=== PATIENT | female | born 1930 | race Caucasian/White ===

== ENCOUNTER 2017-07-09 17:43 | Observation (INO) ==
--- NOTE | 2017-07-09 18:06 | Emergency Department Note ---
Disposition Clinical Impression: Dehydration, CINDY (acute kidney injury) Disposition: Admitted As Inpatient Condition: Fair Referrals: Cristy Gonzalez CNP [Primary Care Provider] - Time of Disposition: 19:49 ([facility]) Weakness HPI - General Stated complaint: confusion, weak Time Seen by Provider: 07/09/17 18:00 Source: patient, family Limitations: no limitations Nursing Notes Reviewed: Yes Vital Signs Reviewed: Yes - History of Present Illness HPI Narrative: Elderly female recently hospitalized for gallop presents to the emergency room complaining of confusion and weakness does not have any energy she denies chest pain chest pressure denies any focal weakness states it is more global she denies any blurred vision double vision neck pain neck stiffness any rashes or lesion she denies cough hemoptysis or sputum production - Related Data Home Medications Medication Instructions Recorded Confirmed Aspirin [Lo-Dose Aspirin EC] 81 mg PO DAILY 09/24/16 07/09/17 Atenolol [Tenormin] 50 mg PO DAILY 09/24/16 07/09/17 Citalopram [CeleXA] 20 mg PO DAILY 09/24/16 07/09/17 Clopidogrel Bisulfate [Plavix] 75 mg PO DAILY 09/24/16 07/09/17 Furosemide [Lasix] 40 mg PO DAILY 09/24/16 07/09/17 Gabapentin [Neurontin] 600 mg PO HS 09/24/16 07/09/17 Levothyroxine [Synthroid] 75 mcg PO 0630 09/24/16 07/09/17 Simvastatin [Zocor] 40 mg PO HS 09/24/16 07/09/17 Lisinopril [Zestril] 10 mg PO DAILY 07/09/17 07/09/17 Allergies Allergy/AdvReac Type Severity Reaction Status Date / Time valsartan [From Diovan] Allergy See Verified 07/09/17 18:17 Comments All systems ED: reviewed and negative except as stated. Review of Systems: As Per HPI Constitutional: Reports: weakness. Denies: chills Eyes: Denies: eye discharge ENT ED: Denies: ear pain, throat pain Cardiovascular: Denies: chest pain, palpitations Respiratory: Denies: cough, dyspnea, wheezes Gastrointestinal: Denies: abdominal pain, nausea, vomiting Genitourinary: Denies: urgency Musculoskeletal: Denies: back pain, neck pain Integumentary: Denies: rash, abrasion Neurological: Reports: weakness, confusion. Denies: headache Psychiatric: Denies: anxiety Endocrine: Denies: fatigue Hematological/Lymphatic: Denies: easy bleeding Allergic/Immunologic: Denies: facial swelling Past Medical History - Past Medical History Attestation: Yes The following information was validated with the patient. Source: patient, old records reviewed, obtained from family, nursing notes reviewed Medical history: Reports: coronary artery disease, hyperlipidemia, hypertension , myocardial infarction, thyroid disease Surgical history: Reports: orthopedic, other Psychiatric history: Reports: no psych history [employer] history: Reports: no [employer] history - Social History Smoking Status: Never smoker Smokeless Tobacco Status: No Alcohol use: Reports: none Drug use: Reports: none Physical Exam - General Limitations: no limitations General appearance: alert, in no apparent distress - Head Head exam: atraumatic, normocephalic, normal inspection - Eye Eye exam: Present: normal appearance, PERRL, EOMI - ENT ENT exam: normal exam, normal oropharynx, mucous membranes moist - Neck Neck exam: Present: normal inspection, full ROM, trachea midline - Chest Chest inspection: Present: normal inspection, symmetric chest wall rise - Respiratory Respiratory exam: Present: normal lung sounds bilaterally - Cardiovascular Cardiovascular exam: Present: regular rate, normal rhythm, normal heart sounds - Abdominal Exam Abdominal exam: Present: soft, Non-Tender, normal bowel sounds. Absent: tenderness, distention, guarding, rebound, rigidity, mass, pulsatile mass - Extremities Exam Extremities exam: Present: normal inspection, full ROM, normal capillary refill. Absent: tenderness, pedal edema, joint swelling, calf tenderness - Expanded Upper Extremity Exam Hand L/R back image: 1 - Red-hot swollen joint and proximal interphalangeal segment recently had gout - Expanded Lower Extremity Exam Neurovascular/Tendon exam: Present: normal capillary refill, normal fine/light touch - Back Exam Back exam: Present: normal inspection, full ROM. Absent: tenderness, muscle spasm - Neurological Exam Neurological exam: Present: alert, oriented X3, CN II-XII intact, normal gait - Psychiatric Psychiatric exam: Present: normal affect, normal mood - Skin Skin exam: Present: warm, dry, intact, normal color Course Course Narrative: Pleasant elderly female EKG chest x-ray CT head labs were ordered including blood cultures to try to determine the etiology of the weakness patient is reportedly had some confusion but she appears to be appropriate at this time only in room at bedside - Reevaluation(s) Reevaluation #1: She had a Mena catheter placed to monitor urine output because of the decreased renal function and minimal urine output noted during her period of time here in the emergency room I spoke with Dr. Shetty he has agreed to accept the patient his services will monitor her eyes and nose and will also repeat BUN /creatinine morning family is agreeable with the plan and they are aware that if the patient does not show any improvement she will have to be transferred Vital Signs Temperature 97.5 F L 07/09/17 17:45 Pulse Rate 67 07/09/17 17:45 Respiratory Rate 16 07/09/17 17:45 Blood Pressure 99/66 07/09/17 17:45 O2 Sat by Pulse Oximetry 96 07/09/17 17:45 Temperature 97.5 F L 07/09/17 17:45 Pulse Rate 68 07/09/17 18:54 Respiratory Rate 16 07/09/17 18:54 Blood Pressure 90/42 07/09/17 18:54 O2 Sat by Pulse Oximetry 99 07/09/17 18:54 Oxygen Delivery Oxygen Delivery Room Air Weakness - Differential Diagnosis Differential Diagnosis: Likely: sepsis/infection, dehydration, metabolic - Medical Records Medical records reviewed: Yes I reviewed the patient's medical records. - Lab Data Lab results reviewed: Yes I reviewed the patient's lab results. Result diagrams: 07/09/17 18:10 07/09/17 18:10 Lab Results 07/09/17 07/09/17 07/09/17 Range/Units 18:10 18:10 18:10 WBC 7.5 (4.3-11.1) K/mcL RBC 3.63 L (3.82-4.97) M/mcL Hgb 11.4 L (11.5-15.4) g/dL Hct 33.0 L (35.3-44.9) % MCV 90.9 (83.0-100.0) fL MCH 31.4 (28.0-33.3) pg MCHC 34.5 (31.6-35.5) g/dL RDW 13.4 (11.5-14.5) % Plt Count 239 (140-400) K/mcL MPV 10.7 (9.4-12.4) fL Immature Gran % 0.7 (0-4) % Seg Neutrophils % 63.8 % Lymphocytes % 27.3 % Monocytes % 5.2 % Eosinophils % 2.3 % Basophils % 0.7 % Neutrophils # 4.8 (1.6-8.9) K/mcL Lymphocytes # 2.0 (0.6-4.6) K/mcL Monocytes # 0.4 (0.0-1.3) K/mcL Eosinophils # 0.2 (0.0-0.6) K/mcL Basophils # 0.1 (0.0-0.2) K/mcL PT (9.4-12.1) Seconds INR APTT 27.2 (26.0-36.0) Seconds VBG Lactic Acid (0.5-2.2) mmol/L Sodium 135 L (136-145) mEq/L Potassium 4.0 (3.5-4.5) mEq/L Chloride 104 (98-109) mEq/L Carbon Dioxide 16 L (19-29) mEq/L BUN 82 H (7-20) mg/dL Creatinine 2.63 H (0.57-1.11) mg/dL Est GFR ( Amer) 21 L (> 60) Est GFR (Non-Af Amer) 17 L (> 60) BUN/Creatinine Ratio 31 H (6-26) Glucose 110 H (70-99) mg/dL Calculated Osmolality 305 H (280-300) Calcium 9.9 (8.6-10.8) mg/dL Total Bilirubin 0.4 (0.2-1.2) mg/dL AST 21 (5-34) Units/L ALT 24 (0-55) Units/L Alkaline Phosphatase 94 (38-126) Units/L Troponin I (0-0.03) ng/mL B-Natriuretic Peptide (0-100) pg/mL Serum Total Protein 6.4 (6.0-8.3) g/dL Albumin 3.3 L (3.5-5.0) g/dL Globulin 3.1 (2.4-3.5) g/dL Albumin/Globulin Ratio 1.1 (1.1-2.2) 07/09/17 07/09/17 07/09/17 Range/Units 18:10 18:10 18:10 WBC (4.3-11.1) K/mcL RBC (3.82-4.97) M/mcL Hgb (11.5-15.4) g/dL Hct (35.3-44.9) % MCV (83.0-100.0) fL MCH (28.0-33.3) pg MCHC (31.6-35.5) g/dL RDW (11.5-14.5) % Plt Count (140-400) K/mcL MPV (9.4-12.4) fL Immature Gran % (0-4) % Seg Neutrophils % % Lymphocytes % % Monocytes % % Eosinophils % % Basophils % % Neutrophils # (1.6-8.9) K/mcL Lymphocytes # (0.6-4.6) K/mcL Monocytes # (0.0-1.3) K/mcL Eosinophils # (0.0-0.6) K/mcL Basophils # (0.0-0.2) K/mcL PT 10.4 (9.4-12.1) Seconds INR 1.0 APTT (26.0-36.0) Seconds VBG Lactic Acid (0.5-2.2) mmol/L Sodium (136-145) mEq/L Potassium (3.5-4.5) mEq/L Chloride (98-109) mEq/L Carbon Dioxide (19-29) mEq/L BUN (7-20) mg/dL Creatinine (0.57-1.11) mg/dL Est GFR ( Amer) (> 60) Est GFR (Non-Af Amer) (> 60) BUN/Creatinine Ratio (6-26) Glucose (70-99) mg/dL Calculated Osmolality (280-300) Calcium (8.6-10.8) mg/dL Total Bilirubin (0.2-1.2) mg/dL AST (5-34) Units/L ALT (0-55) Units/L Alkaline Phosphatase (38-126) Units/L Troponin I 0.01 (0-0.03) ng/mL B-Natriuretic Peptide 154 H (0-100) pg/mL Serum Total Protein (6.0-8.3) g/dL Albumin (3.5-5.0) g/dL Globulin (2.4-3.5) g/dL Albumin/Globulin Ratio (1.1-2.2) 07/09/17 Range/Units 18:10 WBC (4.3-11.1) K/mcL RBC (3.82-4.97) M/mcL Hgb (11.5-15.4) g/dL Hct (35.3-44.9) % MCV (83.0-100.0) fL MCH (28.0-33.3) pg MCHC (31.6-35.5) g/dL RDW (11.5-14.5) % Plt Count (140-400) K/mcL MPV (9.4-12.4) fL Immature Gran % (0-4) % Seg Neutrophils % % Lymphocytes % % Monocytes % % Eosinophils % % Basophils % % Neutrophils # (1.6-8.9) K/mcL Lymphocytes # (0.6-4.6) K/mcL Monocytes # (0.0-1.3) K/mcL Eosinophils # (0.0-0.6) K/mcL Basophils # (0.0-0.2) K/mcL PT (9.4-12.1) Seconds INR APTT (26.0-36.0) Seconds VBG Lactic Acid 1.9 (0.5-2.2) mmol/L Sodium (136-145) mEq/L Potassium (3.5-4.5) mEq/L Chloride (98-109) mEq/L Carbon Dioxide (19-29) mEq/L BUN (7-20) mg/dL Creatinine (0.57-1.11) mg/dL Est GFR ( Amer) (> 60) Est GFR (Non-Af Amer) (> 60) BUN/Creatinine Ratio (6-26) Glucose (70-99) mg/dL Calculated Osmolality (280-300) Calcium (8.6-10.8) mg/dL Total Bilirubin (0.2-1.2) mg/dL AST (5-34) Units/L ALT (0-55) Units/L Alkaline Phosphatase (38-126) Units/L Troponin I (0-0.03) ng/mL B-Natriuretic Peptide (0-100) pg/mL Serum Total Protein (6.0-8.3) g/dL Albumin (3.5-5.0) g/dL Globulin (2.4-3.5) g/dL Albumin/Globulin Ratio (1.1-2.2) - Radiology Data Radiology results reviewed: Yes I reviewed the patient's radiology results. ITS Impressions Chest X-Ray 07/09/17 17:55 IMPRESSION: No acute abnormality. D/ / Dheeraj Scherer MD / Dheeraj Scherer MD Interpreting Provider: Dheeraj Scherer MD Head CT 07/09/17 17:56 IMPRESSION: No acute intracranial abnormality. D/ / Dheeraj Scherer MD / Dheeraj Scherer MD Interpreting Provider: Dheeraj Scherer MD - EKG Data EKG attestation: Yes I reviewed and interpreted this EKG. EKG results narrative: Sinus bradycardia rate 57 MN 155 QRS 98 QT 399 axis XXXIII occasional supraventricular beat noted Critical Care Time Critical Care Time: Yes Total Critical Care Time: 20 Attestation: Critical care performed: 20 minutes as the results of the worsening renal function showing renal insufficiency acute on chronic renal disease and injury with the BUN/creatinine going up and also showing a decrease in CO2 and the patient being hypotensive here which did respond to fluid resuscitation spoke with Dr. Shetty patient admitted transferred to [facility] stable Time is exclusive of separately billable procedures. Time includes: direct patient care, patient reassessment, coordination of patient care, interpretation of data (laboratory data, radiology data, and respiratory data), review of patient's medical records, medical consultation and documentation of patient care. Procedures included in critical care time: Procedures excluded from critical care time:
[2017-07-09] MEDS ORDERED: 0.9 % Sodium Chloride 1,000 ML IVC ONE ×2 (18:15)
[2017-07-09 18:23] LABS: Basophils # 0.1 K/mcL (0.0-0.2); Basophils % 0.7 %; Eosinophils # 0.2 K/mcL (0.0-0.6); Eosinophils % 2.3 %; Hemoglobin 11.4 g/dL (11.5-15.4); Immature Granulocytes % 0.7 % (0-4); Lymphocytes % 27.3 %; Mean Corpuscular HGB Conc 34.5 g/dL (31.6-35.5); Mean Corpuscular Hemoglobin 31.4 pg (28.0-33.3); Mean Corpuscular Volume 90.9 fL (83.0-100.0); Mean Platelet Volume 10.7 fL (9.4-12.4); Monocytes # 0.4 K/mcL (0.0-1.3); Monocytes % 5.2 %; Neutrophils # 4.8 K/mcL (1.6-8.9); Platelet Count 239 K/mcL (140-400); Red Blood Count 3.63 M/mcL (3.82-4.97); Red Cell Distribution Width 13.4 % (11.5-14.5); Segmented Neutrophils % 63.8 %
[2017-07-09 18:49] LABS: Prothrombin Time 10.4 Seconds (9.4-12.1)
[2017-07-09 19:06] LABS: Albumin 3.3 g/dL (3.5-5.0); Albumin/Globulin Ratio 1.1 (1.1-2.2); Bilirubin,Total 0.4 mg/dL (0.2-1.2); Calcium 9.9 mg/dL (8.6-10.8); Globulin 3.1 g/dL (2.4-3.5); Total Protein 6.4 g/dL (6.0-8.3)
--- NOTE | 2017-07-09 23:53 | Internal Med History&Physical ---
Date of Encounter: 07/10/17 Time of Encounter: 23:53 Assessment and Plan (1) CINDY (acute kidney injury) Current visit: Yes Status: Acute Patient has been admitted to observation bed because of acute kidney injury with elevated creatinine of 2.6 with baseline of 1.3. She has confusion, weakness, poor urine output. She will have IV fluids and reassess in the morning. I suspect that she has had NSAID use because of her gout in the finger and possibly poor po intake accounting for this. (2) Chronic kidney disease Current visit: Yes Status: Chronic History chronic kidney disease. Baseline usually about 1.3. Qualifiers: Chronic kidney disease stage: stage 3 (moderate) Qualified Code(s): N18.3 - Chronic kidney disease, stage 3 (moderate) (3) Gout Current visit: No Status: Chronic History of gout with tophaceous changes in the left index finger PIP joint. It is quieted down. She has slightly decreased range of motion. It is not red or hot. We are avoiding NSAID use for this. She finished prednisone already. 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 I do not have a better history than that. She is not having angina. Monitor shows normal sinus rhythm. No congestive heart failure signs or symptoms Qualifiers: Coronary Disease-Associated Artery/Lesion type: [place] artery [place] vs. transplanted heart: [place] heart Associated angina: without angina Qualified Code(s): I25.10 - Atherosclerotic heart disease of [place] coronary artery without angina pectoris (5) Hypertension Current visit: No Status: Chronic History of hypertension. Her blood pressures are in the 90s systolic. We will hold her lisinopril because of low blood pressure and her acute kidney injury. We will monitor. Qualifiers: Hypertension type: essential hypertension Qualified Code(s): I10 - Essential (primary) hypertension (6) Hypothyroid Current visit: No Status: Chronic Qualifiers: Hypothyroidism type: unspecified Qualified Code(s): E03.9 - Hypothyroidism , unspecified Internal Medicine - H&P: HPI Chief complaint: I am not sure why I am here Admitted From: Emergency Dept Plans for Post Hospital Care: Home History of present illness: Ms. Perales is a 87 year old female with known history of recent hospitalization for out in her finger, hypertension, hypothyroidism, chronic kidney disease was admitted via the ER with history of generalized weakness, increased confusion, acute kidney injury, poor urine output. Patient is a poor historian and cannot tell me much more than she had diarrhea that she got better. She has been "confused" but she cannot be anymore specific than that. She does remember that she was at [place] recently because of gout in the left index finger. She does not know the year nor the season. She does know we are in [place] and she knows her birthday and that she is 87 years old. In the ER she was found to have increased creatinine of 2.6.3. Try to get a urine sample she had no urine in her bladder. She had generalized weakness. I cannot get any further history from the patient tonight that is pertinent. Past Med Surg Social Fam HX - Past Medical History Medical history: coronary artery disease, hyperlipidemia, hypertension, myocardial infarction, thyroid disease Psychiatric history: no psych history - Past Surgical History Surgical History: orthopedic, other - Social History Smoking Status: Never smoker Smokeless Tobacco Status: No Alcohol use: none Drug use: none Occupational status: other Current living situation: Home Activity Level: Uses cane/walker - Family History Mother Living Status: Hx Family Cardiac Disorders: Yes (CAD) Daughter Living Status: Still Living Hx Family Cardiac Disorders: No Hx Family Respiratory Disorders: No Hx Family Cancer: No Hx Family GI Disorders: No Internal Medicine - H&P: Meds Aspirin [Lo-Dose Aspirin EC] 81 mg PO DAILY 09/24/16 [History] Atenolol [Tenormin] 50 mg PO DAILY 09/24/16 [History] Citalopram [CeleXA] 20 mg PO DAILY 09/24/16 [History] Clopidogrel Bisulfate [Plavix] 75 mg PO DAILY 09/24/16 [History] Furosemide [Lasix] 40 mg PO DAILY 09/24/16 [History] Gabapentin [Neurontin] 600 mg PO HS 09/24/16 [History] Levothyroxine [Synthroid] 75 mcg PO 0630 09/24/16 [History] Simvastatin [Zocor] 40 mg PO HS 09/24/16 [History] Lisinopril [Zestril] 10 mg PO DAILY 07/09/17 [History] Allergies valsartan [From Diovan] Allergy (Verified 07/09/17 18:17) See Comments - Constitutional Constitutional: weakness, no anorexia, no fever(s), no falls, no night sweats, no weight gain, no weight loss - EENT Eyes: no change in vision, no discharge, no loss of vision, no pain Ears: no ear discharge, no ear pain Nose, mouth and throat: no dry mouth, no neck mass, no sore throat - Cardiovascular Cardiovascular ROS IM: no chest pain, no claudication, no dyspnea, no dyspnea on exertion, no irregular heart rhythm, no lightheadedness, no palpitations, no syncope - Respiratory Respiratory: no cough, no dyspnea, no hemoptysis, no dyspnea on exertion, no change in phlegm color - Gastrointestinal Gastrointestinal: diarrhea (She did have diarrhea but it is now getting better) , no bloating, no constipation, no heartburn, no hematemesis, no melena, no vomiting - Genitourinary Genitourinary: no flank pain, no urinary frequency, no urinary urgency, no vaginal discharge Menstruation: post menopausal - Musculoskeletal Musculoskeletal ROS IM: joint swelling (She has gout left index finger PIP joint ), no back pain - Integumentary Integumentary IM: no rash, no jaundice - Neurological Neurological ROS: as per HPI (She states she has not been herself and sometimes gets confused), no dizziness, no numbness, no vertigo - Psychiatric Psychiatric: as per HPI, no auditory hallucinations, no hallucinations, no visual hallucinations - Constitutional Vitals: Temp Pulse Resp BP Pulse Ox 98.1 F 56 18 99/48 99 07/09/17 21:28 07/09/17 21:28 07/09/17 21:28 07/09/17 21:28 07/09/17 21:28 General appearance: Present: A&O X 2, pleasant, no acute distress, obese - Head Head exam: Present: atraumatic - Eye Eye exam: Present: EOMI, PERRL. Absent: nystagmus, scleral icterus Pupils: Present: PERRL - ENT ENT exam: Present: mucous membranes moist, TM's normal bilaterally. Absent: normal oropharynx (She has a set of dentures) - Neck Neck exam general surgery: Absent: lymphadenopathy, tenderness, thyromegaly - Respiratory Respiratory exam: Present: CTAB. Absent: respiratory distress, wheezes - Cardiovascular Cardiovascular exam: Present: RRR, +S1, +S2. Absent: systolic murmur - GI/Abdominal GI/Abdominal exam: Present: soft. Absent: guarding, hepatomegaly, mass, tenderness, no peritoneal signs - Extremities Exam Extremities exam: Present: warm. Absent: calf tenderness, pedal edema, tenderness Additional comments: Tophaceous gouty-type swelling at the left index finger PIP - Neurological Exam Neurological exam: Present: alert, CN II-XII intact, strengths equal and symetr throughout. Absent: oriented X3, facial droop, speech deficit - Psychiatric Psychiatric exam: Present: normal mood Internal Med - H&P Results - Labs CBC & Chem 7: 07/10/17 04:43 07/10/17 04:43 Labs: Labs have been reviewed.
[2017-07-10] MEDS ORDERED: 0.9 % Sodium Chloride 1,000 ML IVC SCH ×3 (00:30→07:45)
[2017-07-10 03:15] LABS: Bilirubin,Urine Negative (Negative); Blood,Urine Moderate (Negative); Clarity,Urine Clear (Clear); Color,Urine Yellow (Yellow); Glucose,Urine (UA) Normal (Normal); Ketones,Urine Negative (Negative); Leukocyte Esterase,Urine Trace (Negative); Nitrite,Urine Negative (Negative); PH,Urine 5.5 pH Units (5.0-8.0); Protein,Urine Negative (Neg-Trace); Urobilinogen,Urine Normal (Normal)
[2017-07-10 05:27] LABS: Mean Corpuscular HGB Conc 34.5 g/dL (31.6-35.5); Mean Corpuscular Hemoglobin 31.4 pg (28.0-33.3); Mean Corpuscular Volume 91.2 fL (83.0-100.0); Mean Platelet Volume 10.8 fL (9.4-12.4); Platelet Count 199 K/mcL (140-400); Red Blood Count 3.18 M/mcL (3.82-4.97); Red Cell Distribution Width 13.4 % (11.5-14.5)
[2017-07-10 05:40] LABS: Calcium 9.1 mg/dL (8.6-10.8); Potassium 3.6 mEq/L (3.5-4.5)
[2017-07-10 05:42] LABS: Bacteria,Urine Few per hpf (None-Few); RBC,Urine 0-3 per hpf (0-3)
[2017-07-10] MEDS ORDERED: Naloxone 0.4 MG/ML INJ IVP PRN (07:45)
[2017-07-10] MEDS ORDERED: NON-FORMULARY MEDICATION 1 EACH EACH (Gabapentin [Neurontin] 600 MG) PO SCH (07:45)
[2017-07-10] MEDS ORDERED: Furosemide 40 MG TABLET PO SCH ×2 (09:00)
[2017-07-10] MEDS ORDERED: Aspirin Enteric Coated 81 MG Tablet PO SCH ×3 (09:00)
--- NOTE | 2017-07-10 11:07 | Discharge Summary ---
Date of Encounter: 07/10/17 Time of Encounter: 11:06 - Discharge Diagnosis (1) CINDY (acute kidney injury) Priority: Primary Status: Acute Comments: Patient is an 87-year-old woman with known history of chronic kidney disease, recent occurrence of acute gout, hypertension, CAD who was discharged last month from [facility] for acute gout attack in her finger. For the past couple of days she has had increased confusion, not getting around as well and was brought to the emergency room. Her creatinine was found to be 2.6 with a baseline of 1.3 [address] they tried to place a Mena catheter she had no urine in her bladder. With the increase in confusion, decreased ability for ADLs, acute kidney injury and no urine output she was admitted to observation bed. Overnight she had IV fluids and her creatinine this morning is 1.4 with GFR of 33. Her family is present and stated "she is back to her normal". She is able to ambulate with a walker, she is great with social conversation. She does not remember the year, but that is not unusual for her. We suspect that her acute kidney injury may have come from NSAID use that she had at home with regard to treatment for gout. Prior to discharge she was ambulated in the hallway, her family states she is at her baseline, she is eating well and not requiring IV fluids. We are verifying her medications with [facility] and she will be discharged to home to follow up with her PCP soon. (2) Chronic kidney disease Priority: Secondary Status: Chronic Comments: She is chronic kidney disease and likely from hypertension. Her creatinine is now at its baseline. She is to avoid NSAIDs. Qualifiers: Chronic kidney disease stage: stage 3 (moderate) Qualified Code(s): N18.3 - Chronic kidney disease, stage 3 (moderate) (3) Gout Priority: Secondary Status: Chronic Comments: She has gout in her left index finger PIP joint. She has slight decreased mobility. She does not have particular pain with that. She has been weaned off her prednisone since her last discharge from the hospital. She is to avoid NSAIDs. She may follow-up with orthopedics or rheumatology if appropriate per her PCP. At the present time less medication is better for her. 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 Her blood pressure before she came was 130 systolic according to the daughter. Her blood pressures while hospitalized and in the high 90s systolic. We held her lisinopril. They will follow at home and follow-up with PCP. Qualifiers: Hypertension type: essential hypertension Qualified Code(s): I10 - Essential (primary) hypertension (5) Hypothyroid Priority: Secondary Status: Chronic Comments: She is a history of hypothyroidism. Her TSH was checked recently. We will continue the same replacement. Qualifiers: Hypothyroidism type: unspecified Qualified Code(s): E03.9 - Hypothyroidism , unspecified (6) Coronary artery disease Priority: Secondary Status: Chronic Comments: She is a known history of coronary artery disease and stents in the past. Family state that she has appoint see Dr. Krishnan the horizontal drill operator for this. She has had no angina. Cardiac rhythm has been normal sinus rhythm Qualifiers: Coronary Disease-Associated Artery/Lesion type: [place] artery [place] vs. transplanted heart: [place] heart Associated angina: without angina Qualified Code(s): I25.10 - Atherosclerotic heart disease of [place] coronary artery without angina pectoris - Discharge Medications Home Medications: Aspirin [Lo-Dose Aspirin EC] 81 mg PO DAILY 09/24/16 [History] Atenolol [Tenormin] 50 mg PO DAILY 09/24/16 [History] Citalopram [CeleXA] 20 mg PO DAILY 09/24/16 [History] Clopidogrel Bisulfate [Plavix] 75 mg PO DAILY 09/24/16 [History] Furosemide [Lasix] 40 mg PO DAILY 09/24/16 [History] Gabapentin [Neurontin] 600 mg PO HS 09/24/16 [History] Levothyroxine [Synthroid] 75 mcg PO 0630 09/24/16 [History] Simvastatin [Zocor] 40 mg PO HS 09/24/16 [History] Lisinopril [Zestril] 10 mg PO DAILY 07/09/17 [History] Allergies/Adverse Reactions: Allergies valsartan [From Diovan] Allergy (Verified 07/09/17 18:17) See Comments Procedures/tests Complete & Pending: Laboratory Tests 07/09/17 07/09/17 07/09/17 18:10 18:10 18:10 WBC 7.5 RBC 3.63 L Hgb 11.4 L Hct 33.0 L MCV 90.9 MCH 31.4 MCHC 34.5 RDW 13.4 Plt Count 239 MPV 10.7 Immature Gran % 0.7 Seg Neutrophils % 63.8 Lymphocytes % 27.3 Monocytes % 5.2 Eosinophils % 2.3 Basophils % 0.7 Neutrophils # 4.8 Lymphocytes # 2.0 Monocytes # 0.4 Eosinophils # 0.2 Basophils # 0.1 PT INR APTT 27.2 VBG Lactic Acid Sodium 135 L Potassium 4.0 Chloride 104 Carbon Dioxide 16 L BUN 82 H Creatinine 2.63 H Est GFR ( Amer) 21 L Est GFR (Non-Af Amer) 17 L BUN/Creatinine Ratio 31 H Glucose 110 H Calculated Osmolality 305 H Uric Acid Calcium 9.9 Total Bilirubin 0.4 AST 21 ALT 24 Alkaline Phosphatase 94 Troponin I B-Natriuretic Peptide Serum Total Protein 6.4 Albumin 3.3 L Globulin 3.1 Albumin/Globulin Ratio 1.1 Urine Color Urine Clarity Urine pH Ur Specific [place] Urine Protein Urine Glucose (UA) Urine Ketones Urine Blood Urine Nitrite Urine Bilirubin Urine Urobilinogen Ur Leukocyte Esterase Urine Microscopic RBC Urine Microscopic WBC Urine Bacteria Ur Culture Indicated? 07/09/17 07/09/17 07/09/17 18:10 18:10 18:10 WBC RBC Hgb Hct MCV MCH MCHC RDW Plt Count MPV Immature Gran % Seg Neutrophils % Lymphocytes % Monocytes % Eosinophils % Basophils % Neutrophils # Lymphocytes # Monocytes # Eosinophils # Basophils # PT 10.4 INR 1.0 APTT VBG Lactic Acid Sodium Potassium Chloride Carbon Dioxide BUN Creatinine Est GFR ( Amer) Est GFR (Non-Af Amer) BUN/Creatinine Ratio Glucose Calculated Osmolality Uric Acid Calcium Total Bilirubin AST ALT Alkaline Phosphatase Troponin I 0.01 B-Natriuretic Peptide 154 H Serum Total Protein Albumin Globulin Albumin/Globulin Ratio Urine Color Urine Clarity Urine pH Ur Specific [place] Urine Protein Urine Glucose (UA) Urine Ketones Urine Blood Urine Nitrite Urine Bilirubin Urine Urobilinogen Ur Leukocyte Esterase Urine Microscopic RBC Urine Microscopic WBC Urine Bacteria Ur Culture Indicated? 07/09/17 07/09/17 07/10/17 18:10 19:41 03:50 WBC RBC Hgb Hct MCV MCH MCHC RDW Plt Count MPV Immature Gran % Seg Neutrophils % Lymphocytes % Monocytes % Eosinophils % Basophils % Neutrophils # Lymphocytes # Monocytes # Eosinophils # Basophils # PT INR APTT VBG Lactic Acid 1.9 Sodium Potassium Chloride Carbon Dioxide BUN Creatinine Est GFR ( Amer) Est GFR (Non-Af Amer) BUN/Creatinine Ratio Glucose Calculated Osmolality Uric Acid 13.1 H Calcium Total Bilirubin AST ALT Alkaline Phosphatase Troponin I B-Natriuretic Peptide Serum Total Protein Albumin Globulin Albumin/Globulin Ratio Urine Color Yellow Urine Clarity Clear Urine pH 5.5 Ur Specific [place] 1.010 Urine Protein Negative Urine Glucose (UA) Normal Urine Ketones Negative Urine Blood Moderate H Urine Nitrite Negative Urine Bilirubin Negative Urine Urobilinogen Normal Ur Leukocyte Esterase Trace H Urine Microscopic RBC 0-3 Urine Microscopic WBC 3-5 H Urine Bacteria Few Ur Culture Indicated? YES A 07/10/17 07/10/17 04:43 04:43 WBC 6.2 RBC 3.18 L Hgb 10.0 L Hct 29.0 L MCV 91.2 MCH 31.4 MCHC 34.5 RDW 13.4 Plt Count 199 MPV 10.8 Immature Gran % Seg Neutrophils % Lymphocytes % Monocytes % Eosinophils % Basophils % Neutrophils # Lymphocytes # Monocytes # Eosinophils # Basophils # PT INR APTT VBG Lactic Acid Sodium 140 Potassium 3.6 Chloride 113 H Carbon Dioxide 16 L BUN 64 H Creatinine 1.49 H Est GFR ( Amer) 40 L Est GFR (Non-Af Amer) 33 L BUN/Creatinine Ratio 43 H Glucose 90 Calculated Osmolality 308 H Uric Acid Calcium 9.1 Total Bilirubin AST ALT Alkaline Phosphatase Troponin I B-Natriuretic Peptide Serum Total Protein Albumin Globulin Albumin/Globulin Ratio Urine Color Urine Clarity Urine pH Ur Specific [place] Urine Protein Urine Glucose (UA) Urine Ketones Urine Blood Urine Nitrite Urine Bilirubin Urine Urobilinogen Ur Leukocyte Esterase Urine Microscopic RBC Urine Microscopic WBC Urine Bacteria Ur Culture Indicated? Date of admission: 07/09/17 20:12 Primary care physician: Cristy Gonzalez CNP Discharging clinician: Riley Shetty Anticipated date of discharge: 07/10/17 - Patient Status Disposition: Home, Self-Care Condition: Good Functional capacity at discharge: uses cane/walker Overall status at discharge: patient is back to baseline - Discharge Instructions Follow Up With: Cristy Gonzalez CNP [Primary Care Provider] - Forms: ED Satisfaction Letter - Diet and Activity Activity: ambulate only with your walker Diet: low salt diet Hospital course: Ms. Perales is a 87 year old female with known history of chronic kidney disease , hypertension, gout, CAD was admitted overnight in observation bed with confusion, decreased ADLs and was found to have acute kidney injury with creatinine increased from 1.3 baseline dose to 2.6 and very low urine output. Overnight with IV hydration her creatinine dropped back to 1.4 range, good urine output, she is eating and drinking, she is ambulating in the hallway, and her family who are present state that she is back to her baseline. Please see the discharge diagnoses as above. She will be discharged to home today - Time Spent with Patient Total time spent providing and/or coordinating discharge services: - Constitutional Vitals: Temp Pulse Resp BP Pulse Ox 98.1 F 61 16 98/46 97 07/10/17 07:23 07/10/17 07:23 07/10/17 07:23 07/10/17 07:23 07/10/17 07:23 General appearance: Present: A&O X 2, pleasant, no acute distress, obese - Respiratory Respiratory exam: Present: CTAB - Cardiovascular Cardiovascular exam: Present: RRR, +S1, +S2. Absent: systolic murmur - GI/Abdominal GI/Abdominal exam: Present: soft. Absent: tenderness - Extremities Exam Extremities exam: Absent: calf tenderness, tenderness - Neurological Exam Neurological exam: Present: abnormal gait (She requires a walker for stability. Able to ambulate 100 feet or so without difficulty), alert, CN II-XII intact, strengths equal and symetr throughout. Absent: facial droop, speech deficit
[2017-07-10 11:54] VITALS: BP 85/44
--- NOTE | 2017-07-10 15:32 | Electrocardiograph Report ---
[place] [id number] Test Date: 2017-07-09 Pat Name: Harini Perales Department: 2000 Room: 111 Gender: F Claims Correspondence Clerk: : [id number] Requested By: Moraima Duran Order Number: [id number] Reading MD: Anish Oviedo Measurements Intervals [place] Rate: 57 P: 15 WI: 155 QRS: 33 QRSD: 98 T: 39 QT: 399 QTc: 394 Interpretive Statements SINUS BRADYCARDIA WITH OCCASIONAL SUPRAVENTRICULAR PREMATURE COMPLEXES Electronically Signed On 07-10-2017 15:30:21 EDT by Anish Oviedo
[2017-07-10] MEDS ORDERED: Gabapentin 300 MG CAPSULE PO SCH ×2 (21:00)
[2017-07-11] MEDS ORDERED: *HR* Enoxaparin 30 MG/0.3 ML SYRINGE SQ SCH ×2 (06:00)
== END 2017-07-10 13:00 | disposition home or self-care (01) ==
LOC: EMEROOGRE 17:43 → INPGRE 17:43
PROVIDERS: ADMIT Family Medicine; ATTEND Family Medicine

== ENCOUNTER 2017-08-26 15:51 | Inpatient (IN) ==
--- NOTE | 2017-08-26 16:15 | Emergency Department Note ---
Disposition Clinical Impression: Cellulitis of left leg Disposition: Admitted As Inpatient Extremity Problem HPI - General Chief complaint: ED Extremity Injury, Lower Stated complaint: leg pain Time Seen by Provider: 08/26/17 16:02 Source: patient, EMS Mode of arrival: EMS Limitations: no limitations Nursing Notes Reviewed: Yes Vital Signs Reviewed: Yes - History of Present Illness HPI Narrative: 79-year-old female presents to ER with complaints of leg pain. Patient gives a limited history. Family reports patient has been bedbound for days to weeks at this point. Today patient has been very weak and unable to stand on her legs. Son has noticed increased swelling and bilateral ankles but left greater than right. Patient did have an episode where she fell no obvious injury but some noticed increased swelling since that time. Denies any fevers or chills. Patient has recently had an arterial scan of her legs to evaluate for peripheral vascular disease. Pt Subjective Complaint: extremity pain, extremity swelling Onset (ago): day(s) (1) Consistency: constant Injury Location: left, lower extremity Pain Scale: 7 Quality: aching Radiation: proximal Improves with: immobilization, elevation Worsens with: weight bearing Associated symptoms: Reports: denies other symptoms Context: history of peripheral vascular disease - Related Data Home Medications Medication Instructions Recorded Confirmed Aspirin [Lo-Dose Aspirin EC] 81 mg PO DAILY 09/24/16 08/26/17 Atenolol [Tenormin] 50 mg PO DAILY 09/24/16 08/26/17 Citalopram [CeleXA] 20 mg PO DAILY 09/24/16 08/26/17 Clopidogrel Bisulfate [Plavix] 75 mg PO DAILY 09/24/16 08/26/17 Furosemide [Lasix] 40 mg PO DAILY 09/24/16 08/26/17 Gabapentin [Neurontin] 600 mg PO HS 09/24/16 08/26/17 Levothyroxine [Synthroid] 75 mcg PO 0630 09/24/16 08/26/17 Simvastatin [Zocor] 40 mg PO HS 09/24/16 08/26/17 Lisinopril [Zestril] 10 mg PO DAILY 07/09/17 08/26/17 HYDROcodone/Acet 5/325 mg [[place] 1 tab PO Q6H PRN 07/31/17 08/26/17 5-325 mg] Allergies Allergy/AdvReac Type Severity Reaction Status Date / Time No Known Allergies Allergy Verified 07/31/17 13:07 All systems ED: reviewed and negative except as stated. Constitutional: Denies: fever, chills Cardiovascular: Denies: chest pain Respiratory: Denies: cough Gastrointestinal: Denies: nausea, vomiting Musculoskeletal: Reports: myalgia Neurological: Reports: weakness, abnormal gait. Denies: numbness, paresthesias Past Medical History - Past Medical History Attestation: Yes The following information was validated with the patient. Source: patient, obtained from family, nursing notes reviewed Medical history: Reports: coronary artery disease, hyperlipidemia, hypertension , myocardial infarction, peripheral artery disease, thyroid disease Surgical history: Reports: orthopedic, other Psychiatric history: Reports: no psych history COMMUNITY LIAISON history: Reports: no COMMUNITY LIAISON history - Social History Smoking Status: Never smoker Smokeless Tobacco Status: No Alcohol use: Reports: none Drug use: Reports: none Physical Exam - General Limitations: no limitations General appearance: alert, in no apparent distress - Head Head exam: atraumatic, normocephalic - Eye Eye exam: Present: PERRL, EOMI. Absent: conjunctival injection - ENT ENT exam: normal oropharynx, TM's normal bilaterally - Neck Neck exam: Present: normal inspection, full ROM. Absent: lymphadenopathy - Chest Chest inspection: Present: normal inspection, symmetric chest wall rise - Respiratory Respiratory exam: Present: normal lung sounds bilaterally. Absent: respiratory distress - Cardiovascular Cardiovascular exam: Present: regular rate, normal rhythm, normal heart sounds - Abdominal Exam Abdominal exam: Present: soft, Non-Tender, normal bowel sounds. Absent: organomegaly - Extremities Exam Extremities exam: Present: pedal edema, joint swelling. Absent: calf tenderness - Expanded Lower Extremity Exam Ankle exam: Present: tenderness, swelling, erythema (Left ankle and dorsal surface of fluid.). Absent: full ROM Foot/toe exam: Present: tenderness, swelling, erythema (Left foot with warmth) Neurovascular/Tendon exam: Present: normal capillary refill. Absent: pulse deficit, motor deficit, sensory deficit - Skin Skin exam: Present: warm - Expanded Skin Exam Distribution: LLE Description: Present: tenderness, erythematous, swelling Course Course Narrative: Will admit patient for IV antibiotics and PT consult. I have ordered a DVT scan for the morning. Patient will be covered with DVT prophylaxis Lovenox. Vital Signs Temperature 97.4 F L 08/26/17 15:56 Pulse Rate 88 08/26/17 15:56 Respiratory Rate 16 08/26/17 15:56 Blood Pressure 128/68 08/26/17 15:56 O2 Sat by Pulse Oximetry 97 08/26/17 15:56 Temperature 98.7 F 08/27/17 07:05 Pulse Rate 88 08/27/17 07:05 Respiratory Rate 16 08/27/17 07:05 Blood Pressure 114/56 08/27/17 07:05 O2 Sat by Pulse Oximetry 97 08/27/17 07:05 Oxygen Delivery Oxygen Delivery Room Air Extremity Problem, Nontraumati - Differential Diagnosis Likely: cellulitis, deep venous thrombosis - Medical Records Medical records reviewed: Yes I reviewed the patient's medical records. Patient's weeks recent arterial blood scam of legs was negative for acute abdomen Alidase mild disease noted bilaterally. - Lab Data Lab results reviewed: Yes I reviewed the patient's lab results. Lab results narrative: Patient with leukocytosis at 14,000 Patient was stable anemia. Rest of patient' s labs within normal limits. Results discussed with family. Result diagrams: 08/27/17 05:15 08/27/17 05:15 Lab Results 08/26/17 08/26/17 08/26/17 Range/Units 16:24 16:24 16:24 WBC 15.2 H (4.3-11.1) K/mcL RBC 3.13 L (3.82-4.97) M/mcL Hgb 9.5 L (11.5-15.4) g/dL Hct 28.7 L (35.3-44.9) % MCV 91.7 (83.0-100.0) fL MCH 30.4 (28.0-33.3) pg MCHC 33.1 (31.6-35.5) g/dL RDW 13.7 (11.5-14.5) % Plt Count 464 H (140-400) K/mcL MPV 9.9 (9.4-12.4) fL Immature Gran % 0.7 (0-4) % Seg Neutrophils % 76.7 % Lymphocytes % 11.6 % Monocytes % 10.3 % Eosinophils % 0.4 % Basophils % 0.3 % Neutrophils # 11.7 H (1.6-8.9) K/mcL Lymphocytes # 1.8 (0.6-4.6) K/mcL Monocytes # 1.6 H (0.0-1.3) K/mcL Eosinophils # 0.1 (0.0-0.6) K/mcL Basophils # 0.1 (0.0-0.2) K/mcL PT 14.2 H (9.4-12.1) Seconds INR 1.3 APTT 27.4 (26.0-36.0) Seconds Sodium 138 (136-145) mEq/L Potassium 3.0 L (3.5-4.5) mEq/L Chloride 102 (98-109) mEq/L Carbon Dioxide 26 (19-29) mEq/L BUN 19 (7-20) mg/dL Creatinine 0.84 (0.57-1.11) mg/dL Est GFR ( Amer) > 60 (> 60) Est GFR (Non-Af Amer) > 60 (> 60) BUN/Creatinine Ratio 23 (6-26) Glucose 100 H (70-99) mg/dL Calculated Osmolality 288 (280-300) Calcium 9.8 (8.6-10.8) mg/dL Total Bilirubin 0.5 (0.2-1.2) mg/dL AST 20 (5-34) Units/L ALT 16 (0-55) Units/L Alkaline Phosphatase 158 H (38-126) Units/L Serum Total Protein 6.2 (6.0-8.3) g/dL Albumin 2.4 L (3.5-5.0) g/dL Globulin 3.8 H (2.4-3.5) g/dL Albumin/Globulin Ratio 0.6 L (1.1-2.2) Urine Color (Yellow) Urine Clarity (Clear) Urine pH (5.0-8.0) pH Units Ur Specific [place] (1.010-1.025) Urine Protein (Neg-Trace) mg/dL Urine Glucose (UA) (Normal) mg/dL Urine Ketones (Negative) mg/dL Urine Blood (Negative) Urine Nitrite (Negative) Urine Bilirubin (Negative) Urine Urobilinogen (Normal) mg/dL Ur Leukocyte Esterase (Negative) Urine Microscopic RBC (0-3) per hpf Urine Microscopic WBC (0-3) per hpf Ur Squamous Epith Cells (None-Few) per lpf Amorphous Sediment (Few) Urine Bacteria (None-Few) per hpf Hyaline Casts (None-Few) per lpf Ur Culture Indicated? (NO) 08/26/17 Range/Units 16:29 WBC (4.3-11.1) K/mcL RBC (3.82-4.97) M/mcL Hgb (11.5-15.4) g/dL Hct (35.3-44.9) % MCV (83.0-100.0) fL MCH (28.0-33.3) pg MCHC (31.6-35.5) g/dL RDW (11.5-14.5) % Plt Count (140-400) K/mcL MPV (9.4-12.4) fL Immature Gran % (0-4) % Seg Neutrophils % % Lymphocytes % % Monocytes % % Eosinophils % % Basophils % % Neutrophils # (1.6-8.9) K/mcL Lymphocytes # (0.6-4.6) K/mcL Monocytes # (0.0-1.3) K/mcL Eosinophils # (0.0-0.6) K/mcL Basophils # (0.0-0.2) K/mcL PT (9.4-12.1) Seconds INR APTT (26.0-36.0) Seconds Sodium (136-145) mEq/L Potassium (3.5-4.5) mEq/L Chloride (98-109) mEq/L Carbon Dioxide (19-29) mEq/L BUN (7-20) mg/dL Creatinine (0.57-1.11) mg/dL Est GFR ( Amer) (> 60) Est GFR (Non-Af Amer) (> 60) BUN/Creatinine Ratio (6-26) Glucose (70-99) mg/dL Calculated Osmolality (280-300) Calcium (8.6-10.8) mg/dL Total Bilirubin (0.2-1.2) mg/dL AST (5-34) Units/L ALT (0-55) Units/L Alkaline Phosphatase (38-126) Units/L Serum Total Protein (6.0-8.3) g/dL Albumin (3.5-5.0) g/dL Globulin (2.4-3.5) g/dL Albumin/Globulin Ratio (1.1-2.2) Urine Color Yellow (Yellow) Urine Clarity Clear (Clear) Urine pH 5.5 (5.0-8.0) pH Units Ur Specific [place] 1.010 (1.010-1.025) Urine Protein 30 H (Neg-Trace) mg/dL Urine Glucose (UA) Normal (Normal) mg/dL Urine Ketones Negative (Negative) mg/dL Urine Blood Trace-intact H (Negative) Urine Nitrite Positive A (Negative) Urine Bilirubin Negative (Negative) Urine Urobilinogen Normal (Normal) mg/dL Ur Leukocyte Esterase Small H (Negative) Urine Microscopic RBC 0-3 (0-3) per hpf Urine Microscopic WBC 0-3 (0-3) per hpf Ur Squamous Epith Cells Few (None-Few) per lpf Amorphous Sediment Few (Few) Urine Bacteria Many H (None-Few) per hpf Hyaline Casts Few (None-Few) per lpf Ur Culture Indicated? YES A (NO) - Radiology Data Radiology results reviewed: Yes I reviewed the patient's radiology results. Patient had an x-ray of the left lower extremity which was positive for soft tissue swelling negative for bony abnormalities. Results discussed with patient and family.
[2017-08-26 16:36] LABS: Basophils % 0.3 %; Eosinophils # 0.1 K/mcL (0.0-0.6); Eosinophils % 0.4 %; Hematocrit 28.7 % (35.3-44.9); Hemoglobin 9.5 g/dL (11.5-15.4); Immature Granulocytes % 0.7 % (0-4); Lymphocytes # 1.8 K/mcL (0.6-4.6); Lymphocytes % 11.6 %; Mean Corpuscular HGB Conc 33.1 g/dL (31.6-35.5); Mean Corpuscular Hemoglobin 30.4 pg (28.0-33.3); Mean Corpuscular Volume 91.7 fL (83.0-100.0); Mean Platelet Volume 9.9 fL (9.4-12.4); Monocytes # 1.6 K/mcL (0.0-1.3); Monocytes % 10.3 %; Neutrophils # 11.7 K/mcL (1.6-8.9); Platelet Count 464 K/mcL (140-400); Red Blood Count 3.13 M/mcL (3.82-4.97); Red Cell Distribution Width 13.7 % (11.5-14.5); Segmented Neutrophils % 76.7 %
[2017-08-26 16:37] LABS: Bilirubin,Urine Negative (Negative); Blood,Urine Trace-intact (Negative); Clarity,Urine Clear (Clear); Color,Urine Yellow (Yellow); Glucose,Urine (UA) Normal (Normal); Ketones,Urine Negative (Negative); Leukocyte Esterase,Urine Small (Negative); Nitrite,Urine Positive (Negative); PH,Urine 5.5 pH Units (5.0-8.0); Protein,Urine 30 mg/dL (Neg-Trace); Urobilinogen,Urine Normal (Normal)
[2017-08-26 16:40] LABS: Basophils # 0.1 K/mcL (0.0-0.2); INR 1.3; Prothrombin Time 14.2 Seconds (9.4-12.1)
[2017-08-26 16:43] LABS: Activated Partial Thrombo Time 27.4 Seconds (26.0-36.0)
[2017-08-26 16:44] LABS: Bacteria,Urine Many per hpf (None-Few); RBC,Urine 0-3 per hpf (0-3); Squamous Epithelial Cell,Urine Few per lpf (None-Few); WBC,Urine 0-3 per hpf (0-3)
[2017-08-26 16:45] LABS: Amorphous Sediment,Urine Few (Few); Hyaline Casts,Urine Few per lpf (None-Few)
[2017-08-26 16:51] LABS: Alanine Aminotransferase 16 Units/L (0-55); Albumin 2.4 g/dL (3.5-5.0); Albumin/Globulin Ratio 0.6 (1.1-2.2); Alkaline Phosphatase 158 Units/L (38-126); Aspartate Amino Transferase 20 Units/L (5-34); BUN/Creatinine Ratio 23 (6-26); Bilirubin,Total 0.5 mg/dL (0.2-1.2); Blood Urea Nitrogen 19 mg/dL (7-20); Calcium 9.8 mg/dL (8.6-10.8); Carbon Dioxide 26 mEq/L (19-29); Chloride 102 mEq/L (98-109); Globulin 3.8 g/dL (2.4-3.5); Glucose 100 mg/dL (70-99); Osmolality,Calculated 288 (280-300); Sodium 138 mEq/L (136-145); Total Protein 6.2 g/dL (6.0-8.3); eGFR For African Americans > 60 (> 60); eGFR For Non-African Americans > 60 (> 60)
[2017-08-26] MEDS ORDERED: Levofloxacin 750 MG/150 ML 750 MG/150 ML BAG IVPB ONE (17:15)
[2017-08-26] MEDS ORDERED: Naloxone 0.4 MG/ML INJ IVP PRN (18:58)
[2017-08-26] MEDS: *HR* HYDROcodone/Acet 5/325 mg TABLET PO PRN (20:02)
[2017-08-26] MEDS: Gabapentin 300 MG CAPSULE PO SCH (20:02)
[2017-08-27] MEDS: *HR* Enoxaparin 40 MG/0.4 ML SYRINGE SQ SCH (05:23)
[2017-08-27 05:46] LABS: Basophils % 0.3 %; Hematocrit 27.5 % (35.3-44.9); Immature Granulocytes % 0.9 % (0-4); Lymphocytes # 2.2 K/mcL (0.6-4.6); Lymphocytes % 14.9 %; Mean Corpuscular HGB Conc 32.7 g/dL (31.6-35.5); Mean Corpuscular Hemoglobin 30.2 pg (28.0-33.3); Mean Corpuscular Volume 92.3 fL (83.0-100.0); Monocytes # 1.6 K/mcL (0.0-1.3); Monocytes % 10.6 %; Neutrophils # 10.6 K/mcL (1.6-8.9); Platelet Count 440 K/mcL (140-400); Red Blood Count 2.98 M/mcL (3.82-4.97); Red Cell Distribution Width 13.6 % (11.5-14.5); Segmented Neutrophils % 72.3 %
[2017-08-27 05:47] LABS: Eosinophils # 0.2 K/mcL (0.0-0.6)
[2017-08-27 05:56] LABS: BUN/Creatinine Ratio 20 (6-26); Blood Urea Nitrogen 16 mg/dL (7-20); Calcium 9.8 mg/dL (8.6-10.8); Carbon Dioxide 24 mEq/L (19-29); Chloride 103 mEq/L (98-109); Glucose 94 mg/dL (70-99); Osmolality,Calculated 289 (280-300); Potassium 3.8 mEq/L (3.5-4.5); Sodium 139 mEq/L (136-145); eGFR For African Americans > 60 (> 60); eGFR For Non-African Americans > 60 (> 60)
[2017-08-27] MEDS ORDERED: Furosemide 40 MG TABLET PO SCH (09:00)
[2017-08-27] MEDS: Aspirin Enteric Coated 81 MG Tablet PO SCH (09:37)
[2017-08-27] MEDS: *HR* HYDROcodone/Acet 5/325 mg TABLET PO PRN (09:44)
--- NOTE | 2017-08-27 15:11 | Internal Med History&Physical ---
Date of Encounter: 08/27/17 Time of Encounter: 15:08 Assessment and Plan (1) Gout Current visit: No Status: Chronic Will check her meds for allopurinol also check her lab. 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 Perales is a 87 year old female Past Med Surg Social Fam HX - Past Medical History Medical history: coronary artery disease, hyperlipidemia, hypertension, myocardial infarction, peripheral artery disease, thyroid disease Psychiatric history: no psych history - Past Surgical History Surgical History: orthopedic, other - Social History Smoking Status: Never smoker Smokeless Tobacco Status: No Alcohol use: none Drug use: none - Family History Mother Living Status: Hx Family Cardiac Disorders: Yes (CAD) Daughter Living Status: Still Living Hx Family Cardiac Disorders: No Hx Family Respiratory Disorders: No Hx Family Cancer: No Hx Family GI Disorders: No Internal Medicine - H&P: Meds Aspirin [Lo-Dose Aspirin EC] 81 mg PO DAILY 09/24/16 [History] Atenolol [Tenormin] 50 mg PO DAILY 09/24/16 [History] Citalopram [CeleXA] 20 mg PO DAILY 09/24/16 [History] Clopidogrel Bisulfate [Plavix] 75 mg PO DAILY 09/24/16 [History] Furosemide [Lasix] 40 mg PO DAILY 09/24/16 [History] Gabapentin [Neurontin] 600 mg PO HS 09/24/16 [History] Levothyroxine [Synthroid] 75 mcg PO 0630 10/25/16 [History] Simvastatin [Zocor] 40 mg PO HS 09/24/16 [History] Lisinopril [Zestril] 10 mg PO DAILY 07/09/17 [History] HYDROcodone/Acet 5/325 mg [[place] 5-325 mg] 1 tab PO Q6H PRN 07/31/17 [History] 3 Allergy/AdvReac Type Severity Reaction Status Date / Time No Known Allergies Allergy Verified 07/31/17 13:07 All Systems PM: A 10-system review of systems was performed and is negative for pertinent findings except as documented above in the HPI. - Constitutional Vitals: Temp Pulse Resp BP Pulse Ox 100.4 F H 89 16 107/50 93 08/27/17 11:54 08/27/17 11:54 08/27/17 11:54 08/27/17 11:54 08/27/17 11:54 - Head Head exam: Present: atraumatic, normal inspection, normocephalic - Neck Neck exam general surgery: Present: supple, trachea midline. Absent: lymphadenopathy - Respiratory Respiratory exam: Present: CTAB. Absent: accessory muscle use, rales, rhonchi, wheezes - Cardiovascular Cardiovascular exam: Present: RRR, +S1, +S2. Absent: diastolic murmur, gallop, rubs, systolic murmur Internal Med - H&P Results - Labs CBC & Chem 7: 08/27/17 05:15 08/27/17 05:15 Labs: Short CBC 08/27/17 Range/Units 05:15 WBC 14.6 H (4.3-11.1) K/mcL Hgb 9.0 L (11.5-15.4) g/dL Hct 27.5 L (35.3-44.9) % Plt Count 440 H (140-400) K/mcL Neutrophils # 10.6 H (1.6-8.9) K/mcL BMP 08/27/17 05:15 Sodium 139 Potassium 3.8 Chloride 103 Carbon Dioxide 24 BUN 16 Creatinine 0.79 Glucose 94 Calcium 9.8 Well there are some changes on her lab but overall she has an increased white count could be consistent with cellulitis by her minerals and her chemistries are good
[2017-08-27] MEDS: Furosemide 40 MG/4 ML VIAL IVP SCH (15:56)
--- NOTE | 2017-08-27 19:06 | Venous Imaging Report ---
LE Venous Duplex Patient Name:Harini Perales Order Number:[id number] Procedure Date:08/27/2017 Date:1930ge:87 yrs Gender:Female Location:[facility] Room #: 114 Work Ticket Distributor:Latonia Keita RVT Referring MD:Laney Parmar DO Reading MD:Moses Valdez MD , FACS Primary Indications:left lower extremity swelling Secondary Indications: Risk Factors Yes/No Hx of DVT No Hx of Chemotherapy No Impressions: Left lower extremity: normal superficial and deep exam. Right lower extremity: normal contralateral exam. Recommendations: Critical findings reported to Nurse in person by Latonia Keita RVT. Findings Venous Duplex Results: Right: Venous imaging of the lower extremity reveals full patency and normal vessel compressibility of the right common femoral. Doppler signals in the evaluated veins were normal. Left: Venous imaging of the lower extremity reveals full patency and normal vessel compressibility of the left distal iliac, left common femoral, left superficial femoral, left popliteal, left posterior tibial, left peroneal, left great saphenous and left lesser saphenous. Doppler signals in the evaluated veins were normal. Prior Study: No prior study available for comparison. Lower Extremity Venous Duplex Side Vein Compress Spontaneous Flow Augment Diameter (cm) Depth (cm) Left Distal Iliac Normal Yes Phasic Yes Left Common Femoral Normal Yes Phasic Yes Left Superficial Femoral Normal Yes Phasic Yes Left Popliteal Normal Yes Phasic Yes Left Posterior Tibial Normal Yes Phasic Yes Left Peroneal Normal Yes Phasic Yes Left Great Saphenous Normal Yes Phasic Yes Left Lesser Saphenous Normal Yes Phasic Yes Right Common Femoral Normal Yes Phasic Yes Updated by Moses Valdez MD, FACS on 08/27/2017 7:01:37 PM Moses Valdez MD electronically signed on 08/27/2017 7:01:54 PM with status of Final
[2017-08-27] MEDS: Gabapentin 300 MG CAPSULE PO SCH (21:03)
[2017-08-28] MEDS: *HR* Enoxaparin 40 MG/0.4 ML SYRINGE SQ SCH (06:52)
[2017-08-28] MEDS: Furosemide 40 MG/4 ML VIAL IVP SCH ×2 (08:30→18:10)
[2017-08-28] MEDS: Aspirin Enteric Coated 81 MG Tablet PO SCH (08:31)
[2017-08-28] MEDS: *HR* HYDROcodone/Acet 5/325 mg TABLET PO PRN (08:36)
[2017-08-28] MEDS: levoFLOXacin 500 MG TABLET PO SCH (17:07)
[2017-08-28] MEDS: Gabapentin 300 MG CAPSULE PO SCH (20:36)
--- NOTE | 2017-08-28 20:51 | Internal Med Progress Note ---
Date of Encounter: 08/28/17 Time of Encounter: 20:49 - Assessment and plan (1) UTI (urinary tract infection) Current Visit: Yes Status: Acute Assessment and plan: rew pseduomonnas on sensitive to levofloxacin stable Qualifiers: Urinary tract infection type: acute cystitis Qualified Code(s): N30.00 - Acute cystitis without hematuria (2) Cellulitis of left leg Current Visit: Yes Status: Acute Assessment and plan: stable on meds and leg seems to be getting better very little warmth noted on left side (3) Hypertension Current Visit: No Status: Chronic Assessment and plan: stable no new change continue meds Qualifiers: Hypertension type: essential hypertension Qualified Code(s): I10 - Essential (primary) hypertension - Subjective Interval history: seen for the first time complains of some pain in her legs otherwsie no other issues - Constitutional Vitals: Temp Pulse Resp BP Pulse Ox 99.4 F 79 16 96/55 96 08/28/17 19:46 08/28/17 19:46 08/28/17 19:46 08/28/17 19:46 08/28/17 19:46 General appearance: Present: A&O X 3, pleasant, answers questions appropriately - Head Head exam: Present: atraumatic - Eye Eye exam: Present: EOMI, PERRL Pupils: Present: PERRL - Neck Neck exam general surgery: Present: supple. Absent: nuchal rigidity - Respiratory Respiratory exam: Present: CTAB. Absent: respiratory distress, rhonchi, stridor , wheezes - Cardiovascular Cardiovascular exam: Present: RRR, +S1, +S2. Absent: irregular rhythm, JVD - GI/Abdominal GI/Abdominal exam: Present: normal bowel sounds, soft. Absent: pulsatile mass, rebound, rigid - Extremities Exam Extremities exam: Present: warm Additional comments: mild wramed left side no edema noted - Neurological Exam Neurological exam: Present: CN II-XII intact, oriented X3, strengths equal and symetr throughout. Absent: facial droop, speech deficit - Other Additional findings: has cast on her right arm Internal Medicine: Result - Labs CBC & Chem 7: 08/27/17 05:15 08/27/17 05:15 - ABG Interpretation ABG results: PT/INR, D-dimer PT 14.2 Seconds (9.4-12.1) H 08/26/17 16:24 - VTE Reasons for not Prescribing Prophylaxis: Treatment not Indicated - Low risk for VTE Consult Discharge Plan - Plan Referrals: Cristy oGnzalez, ALMAZ [Primary Care Provider] -
[2017-08-29] MEDS: *HR* Enoxaparin 40 MG/0.4 ML SYRINGE SQ SCH (06:06)
[2017-08-29 06:30] LABS: Basophils % 0.3 %; Eosinophils # 0.1 K/mcL (0.0-0.6); Eosinophils % 0.8 %; Hematocrit 24.7 % (35.3-44.9); Hemoglobin 8.3 g/dL (11.5-15.4); Immature Granulocytes % 1.3 % (0-4); Lymphocytes # 2.2 K/mcL (0.6-4.6); Lymphocytes % 14.7 %; Mean Corpuscular HGB Conc 33.6 g/dL (31.6-35.5); Mean Corpuscular Hemoglobin 30.5 pg (28.0-33.3); Mean Corpuscular Volume 90.8 fL (83.0-100.0); Mean Platelet Volume 9.7 fL (9.4-12.4); Monocytes # 1.2 K/mcL (0.0-1.3); Monocytes % 8.1 %; Platelet Count 467 K/mcL (140-400); Red Blood Count 2.72 M/mcL (3.82-4.97); Red Cell Distribution Width 14.1 % (11.5-14.5); Segmented Neutrophils % 74.8 %
[2017-08-29 06:35] LABS: Neutrophils # 11.2 K/mcL (1.6-8.9)
[2017-08-29] MEDS: Aspirin Enteric Coated 81 MG Tablet PO SCH (08:37)
[2017-08-29] MEDS: Acetaminophen 325 MG TABLET PO PRN ×2 (08:43→20:23)
[2017-08-29] MEDS: *HR* HYDROcodone/Acet 5/325 mg TABLET PO PRN (17:42)
--- NOTE | 2017-08-29 17:58 | Internal Med Progress Note ---
Date of Encounter: 08/29/17 Time of Encounter: 17:53 - Assessment and plan (1) UTI (urinary tract infection) Current Visit: Yes Status: Acute Qualifiers: Urinary tract infection type: acute cystitis Qualified Code(s): N30.00 - Acute cystitis without hematuria (2) Cellulitis of left leg Current Visit: Yes Status: Acute (3) Hypertension Current Visit: No Status: Chronic Qualifiers: Hypertension type: essential hypertension Qualified Code(s): I10 - Essential (primary) hypertension - Subjective Interval history: still complains of pain all over her body especially on her feet and legs no SOB no other complains - Constitutional Vitals: Temp Pulse Resp BP Pulse Ox 99.3 F 90 18 117/64 92 08/29/17 16:50 08/29/17 16:50 08/29/17 16:50 08/29/17 16:50 08/29/17 16:50 General appearance: Present: A&O X 3, pleasant, answers questions appropriately - Head Head exam: Present: atraumatic - Eye Eye exam: Present: EOMI, PERRL - Neck Neck exam general surgery: Present: supple. Absent: tenderness, nuchal rigidity - Respiratory Respiratory exam: Present: CTAB. Absent: prolonged expiratory phase, rales, respiratory distress, rhonchi, stridor, wheezes - Cardiovascular Cardiovascular exam: Present: RRR, +S1, +S2. Absent: gallop, irregular rhythm, JVD - GI/Abdominal GI/Abdominal exam: Present: normal bowel sounds, soft. Absent: distended, guarding, rebound, rigid - Extremities Exam Extremities exam: Present: tenderness, warm. Absent: pedal edema Additional comments: left foot warm to touch redness but improving on her foot - Neurological Exam Neurological exam: Present: CN II-XII intact, oriented X3, no focal deficits. Absent: facial droop, speech deficit Internal Medicine: Result - Labs CBC & Chem 7: 08/29/17 06:12 08/27/17 05:15 Labs: Short CBC 08/29/17 Range/Units 06:12 WBC 14.9 H (4.3-11.1) K/mcL Hgb 8.3 L (11.5-15.4) g/dL Hct 24.7 L (35.3-44.9) % Plt Count 467 H (140-400) K/mcL Neutrophils # 11.2 H (1.6-8.9) K/mcL - ABG Interpretation ABG results: PT/INR, D-dimer PT 14.2 Seconds (9.4-12.1) H 08/26/17 16:24 - VTE Reasons for not Prescribing Prophylaxis: Treatment not Indicated - Low risk for VTE Consult Discharge Plan - Plan Referrals: Cristy Gonzalez, [facility] [Primary Care Provider] -
[2017-08-29] MEDS: Gabapentin 300 MG CAPSULE PO SCH (20:17)
[2017-08-30] MEDS: *HR* Enoxaparin 40 MG/0.4 ML SYRINGE SQ SCH (05:58)
[2017-08-30 08:49] LABS: Basophils # 0.1 K/mcL (0.0-0.2); Basophils % 0.4 %; Eosinophils # 0.3 K/mcL (0.0-0.6); Eosinophils % 1.8 %; Hematocrit 25.6 % (35.3-44.9); Hemoglobin 8.5 g/dL (11.5-15.4); Lymphocytes # 2.1 K/mcL (0.6-4.6); Mean Corpuscular HGB Conc 33.2 g/dL (31.6-35.5); Mean Corpuscular Hemoglobin 30.1 pg (28.0-33.3); Mean Corpuscular Volume 90.8 fL (83.0-100.0); Mean Platelet Volume 9.9 fL (9.4-12.4); Platelet Count 501 K/mcL (140-400); Red Blood Count 2.82 M/mcL (3.82-4.97); Segmented Neutrophils % 74.8 %
[2017-08-30] MEDS: Aspirin Enteric Coated 81 MG Tablet PO SCH (08:58)
[2017-08-30] MEDS: *HR* HYDROcodone/Acet 5/325 mg TABLET PO PRN ×2 (09:07→18:26)
[2017-08-30 09:18] LABS: BUN/Creatinine Ratio 23 (6-26); Blood Urea Nitrogen 24 mg/dL (7-20); Calcium 9.5 mg/dL (8.6-10.8); Carbon Dioxide 27 mEq/L (19-29); Chloride 102 mEq/L (98-109); Glucose 112 mg/dL (70-99); Osmolality,Calculated 293 (280-300); Potassium 3.3 mEq/L (3.5-4.5); Sodium 139 mEq/L (136-145); eGFR For African Americans > 60 (> 60); eGFR For Non-African Americans 51 (> 60)
[2017-08-30 09:31] LABS: Neutrophils # 10.3 K/mcL (1.6-8.9)
--- NOTE | 2017-08-30 10:31 | Internal Med Progress Note ---
Date of Encounter: 08/30/17 Time of Encounter: 10:29 - Assessment and plan (1) UTI (urinary tract infection) Current Visit: Yes Status: Acute Assessment and plan: WBC is still high on antibiotics afebrile continue present meds Qualifiers: Urinary tract infection type: acute cystitis Qualified Code(s): N30.00 - Acute cystitis without hematuria (2) Cellulitis of left leg Current Visit: Yes Status: Acute Assessment and plan: cellulites left foot which is getting better . Levofloxacin should also cover Staph and strep hold off discharge today to [facility] as her WBC are still somewhat on the higher end and are not trending down (3) Hypertension Current Visit: No Status: Chronic Assessment and plan: stable no new change Qualifiers: Hypertension type: essential hypertension Qualified Code(s): I10 - Essential (primary) hypertension - Subjective Interval history: complains of some pain in her feet otherwise no other complains no fever or chills today no SOB - Constitutional Vitals: Temp Pulse Resp BP Pulse Ox 97.7 F 69 16 101/60 99 08/30/17 07:06 08/30/17 07:06 08/30/17 07:06 08/30/17 07:06 08/30/17 07:06 General appearance: Present: A&O X 3, pleasant, answers questions appropriately - Head Head exam: Present: atraumatic - Eye Eye exam: Present: EOMI, PERRL Pupils: Present: PERRL - Neck Neck exam general surgery: Present: supple. Absent: tenderness, nuchal rigidity - Respiratory Respiratory exam: Present: CTAB. Absent: respiratory distress, rhonchi, stridor , wheezes, tachypnea - Cardiovascular Cardiovascular exam: Present: RRR, +S1, +S2. Absent: irregular rhythm, JVD, systolic murmur - GI/Abdominal GI/Abdominal exam: Present: normal bowel sounds, soft. Absent: guarding, rebound, rigid - Extremities Exam Extremities exam: Present: pedal edema, tenderness, warm Additional comments: left foot planter area red and is getting better as compared to yesterday Pitting edema B Internal Medicine: Result - Labs CBC & Chem 7: 08/30/17 08:15 08/30/17 08:15 Labs: Short CBC 08/30/17 Range/Units 08:15 WBC 13.7 H (4.3-11.1) K/mcL Hgb 8.5 L (11.5-15.4) g/dL Hct 25.6 L (35.3-44.9) % Plt Count 501 H (140-400) K/mcL Neutrophils # 10.3 H (1.6-8.9) K/mcL BMP 08/30/17 08:15 Sodium 139 Potassium 3.3 L Chloride 102 Carbon Dioxide 27 BUN 24 H Creatinine 1.03 Glucose 112 H Calcium 9.5 noted WBC still high low K - ABG Interpretation ABG results: PT/INR, D-dimer PT 14.2 Seconds (9.4-12.1) H 08/26/17 16:24 - VTE Reasons for not Prescribing Prophylaxis: Treatment not Indicated - Low risk for VTE Consult Discharge Plan - Plan Referrals: Cristy Gonzalez, [facility]MINISTR[facility] [Primary Care Provider] -
--- NOTE | 2017-08-30 10:40 | Physician Discharge Referral ---
[facility]Care Referral Info Transfer To: [facility] - Diagnosis (1) UTI (urinary tract infection) Priority: Secondary Status: Acute (2) Cellulitis of left leg Priority: Primary Status: Acute (3) Hypertension Priority: Secondary Status: Chronic Prognosis: Good Aware of Diagnosis: Patient, Family Aware of Prognosis: Patient, Family - Transfer Medications Home Medications: Aspirin [Lo-Dose Aspirin EC] 81 mg PO DAILY 09/24/16 [History] Atenolol [Tenormin] 50 mg PO DAILY 09/24/16 [History] Citalopram [CeleXA] 20 mg PO DAILY 09/24/16 [History] Clopidogrel Bisulfate [Plavix] 75 mg PO DAILY 09/24/16 [History] Furosemide [Lasix] 40 mg PO DAILY 09/24/16 [History] Gabapentin [Neurontin] 600 mg PO HS 09/24/16 [History] Levothyroxine [Synthroid] 75 mcg PO 0630 09/24/16 [History] Simvastatin [Zocor] 40 mg PO HS 09/24/16 [History] Lisinopril [Zestril] 10 mg PO DAILY 07/09/17 [History] HYDROcodone/Acet 5/325 mg [[place] 5-325 mg] 1 tab PO Q6H PRN 07/31/17 [History] Allergies/Adverse Reactions: 3 Allergy/AdvReac Type Severity Reaction Status Date / Time No Known Allergies Allergy Verified 07/31/17 13:07 - Respiratory Orders None Smoking Cessation: Smoking cessation has been advised. For more information, call the [place] Tobacco Quit Line at 5-321-TFNP-NOW. - Advance Directives Code Status: Full Code - History and Physical History/Physical reviewed & approved w/add comments: See discharge summary - Mobility Orders Chair, Other - Rehabiliation Orders Rehab Potential: Fair Rehab Orders: Evaluation for Physical Therapy, Evaluation for Occupational Therapy - Diet Orders Regular CERTIFICATION: I certify that the transfer of the above named patient to an Extended Care Facility is necessary for the continuing treatment of the diagnosis listed. The above information is true and accurate reflection of patient's current condition. Confidential - Redisclosure prohibited without a patient's written consent.
--- NOTE | 2017-08-30 10:43 | Discharge Summary ---
Date of Encounter: 08/31/17 Time of Encounter: 09:07 - Discharge Diagnosis (1) UTI (urinary tract infection) Priority: Secondary Status: Acute Comments: she grew Pseudomonas sensitive to levofloxacin. She was treated appropriately . blood cultures were negative .She is is improving and doing better Continue antibiotics for one week Qualifiers: Urinary tract infection type: acute cystitis Qualified Code(s): N30.00 - Acute cystitis without hematuria (2) Cellulitis of left leg Priority: Primary Status: Acute Comments: her blood culiutres were negative . Levofloxacin should cover all gram positive organisma as well if any , cellulites is improving . (3) Hypertension Priority: Secondary Status: Chronic Comments: stable no new change Qualifiers: Hypertension type: essential hypertension Qualified Code(s): I10 - Essential (primary) hypertension - Discharge Medications Home Medications: Aspirin [Lo-Dose Aspirin EC] 81 mg PO DAILY 09/24/16 [History] Atenolol [Tenormin] 50 mg PO DAILY 09/24/16 [History] Citalopram [CeleXA] 20 mg PO DAILY 09/24/16 [History] Clopidogrel Bisulfate [Plavix] 75 mg PO DAILY 09/24/16 [History] Furosemide [Lasix] 40 mg PO DAILY 09/24/16 [History] Gabapentin [Neurontin] 600 mg PO HS 09/24/16 [History] Levothyroxine [Synthroid] 75 mcg PO 0630 09/24/16 [History] Simvastatin [Zocor] 40 mg PO HS 09/24/16 [History] Lisinopril [Zestril] 10 mg PO DAILY 07/09/17 [History] HYDROcodone/Acet 5/325 mg [[place] 5-325 mg] 1 tab PO Q6H PRN 07/31/17 [History] Allergies/Adverse Reactions: 3 Allergy/AdvReac Type Severity Reaction Status Date / Time No Known Allergies Allergy Verified 07/31/17 13:07 Date of admission: 08/27/17 16:10 Primary care physician: Cristy Gonzalez CNP - Patient Status Disposition: Transfer SNF Condition: Good Overall status at discharge: patient is progressing back to baseline - Discharge Instructions Follow Up With: Cristy Gonzalez CNP [Primary Care Provider] - - Diet and Activity Activity: ambulate only with your walker, increase activity as tolerated Diet: advance to your usual diet Interval History: she was admitted with cellulites and was also noted to have infection in her urine . Cultures grew Gram negative Pseudomonas sensitive to levofloxacin . She was treated with IV antibiotics and had done well no other issues except for pain in her feet which was treated with medications Hospital course: Ms. Perales is a 87 year old female - Time Spent with Patient Total time spent providing and/or coordinating discharge services: - Constitutional Vitals: Temp Pulse Resp BP Pulse Ox 97.7 F 69 16 101/60 99 08/30/17 07:06 08/30/17 07:06 08/30/17 07:06 08/30/17 07:06 08/30/17 07:06 General appearance: Present: A&O X 3, pleasant, answers questions appropriately - Head Head exam: Present: atraumatic - Eye Eye exam: Present: EOMI, PERRL. Absent: scleral icterus, conjuntiva pink - Neck Neck exam general surgery: Present: supple. Absent: tenderness, nuchal rigidity - Respiratory Respiratory exam: Present: CTAB. Absent: respiratory distress, rhonchi, stridor , wheezes, tachypnea - Cardiovascular Cardiovascular exam: Present: RRR, +S1, +S2. Absent: irregular rhythm, JVD, systolic murmur, tachycardia - GI/Abdominal GI/Abdominal exam: Present: normal bowel sounds, soft. Absent: firm, guarding, rebound, rigid - Extremities Exam Extremities exam: Present: pedal edema, tenderness, warm Additional comments: left foot mild redness , redness has improved a lot , no pain - Neurological Exam Neurological exam: Present: CN II-XII intact, oriented X3, no focal deficits. Absent: facial droop, speech deficit Additional comments: non focal - VTE Reasons for not Prescribing Prophylaxis: Treatment not Indicated - Low risk for VTE
[2017-08-30] MEDS: Potassium Citrate 10 MEQ TABLET.ER PO SCH (11:59)
[2017-08-30] MEDS: levoFLOXacin 500 MG TABLET PO SCH (18:26)
[2017-08-30] MEDS: Gabapentin 300 MG CAPSULE PO SCH (22:17)
[2017-08-30] MEDS: Acetaminophen 325 MG TABLET PO PRN (22:18)
[2017-08-31 05:44] LABS: Basophils # 0.1 K/mcL (0.0-0.2); Basophils % 0.5 %; Eosinophils # 0.3 K/mcL (0.0-0.6); Eosinophils % 2.3 %; Hematocrit 26.2 % (35.3-44.9); Hemoglobin 8.5 g/dL (11.5-15.4); Immature Granulocytes % 1.4 % (0-4); Lymphocytes # 2.4 K/mcL (0.6-4.6); Lymphocytes % 17.9 %; Mean Corpuscular HGB Conc 32.4 g/dL (31.6-35.5); Mean Corpuscular Hemoglobin 29.6 pg (28.0-33.3); Mean Corpuscular Volume 91.3 fL (83.0-100.0); Mean Platelet Volume 9.8 fL (9.4-12.4); Monocytes % 7.2 %; Neutrophils # 9.4 K/mcL (1.6-8.9); Platelet Count 550 K/mcL (140-400); Red Blood Count 2.87 M/mcL (3.82-4.97); Segmented Neutrophils % 70.7 %
[2017-08-31 05:56] LABS: BUN/Creatinine Ratio 23 (6-26); Blood Urea Nitrogen 22 mg/dL (7-20); Calcium 9.8 mg/dL (8.6-10.8); Carbon Dioxide 28 mEq/L (19-29); Chloride 103 mEq/L (98-109); Glucose 95 mg/dL (70-99); Osmolality,Calculated 293 (280-300); Potassium 4.4 mEq/L (3.5-4.5); Sodium 140 mEq/L (136-145); eGFR For African Americans > 60 (> 60); eGFR For Non-African Americans 56 (> 60)
[2017-08-31] MEDS: *HR* Enoxaparin 40 MG/0.4 ML SYRINGE SQ SCH (06:55)
[2017-08-31] MEDS: *HR* HYDROcodone/Acet 5/325 mg TABLET PO PRN (06:55)
[2017-08-31 07:42] VITALS: BP 115/66
[2017-08-31] MEDS: Acetaminophen 325 MG TABLET PO PRN (09:47)
[2017-08-31] MEDS: Aspirin Enteric Coated 81 MG Tablet PO SCH (09:47)
[2017-08-31] MEDS: Potassium Citrate 10 MEQ TABLET.ER PO SCH (09:47)
== END 2017-08-31 11:35 | DRG 603 ==
LOC: EMEROOGRE 15:51 → INPGRE 15:51
PROVIDERS: ADMIT Internal Medicine; ATTEND Internal Medicine